=== PATIENT | female | born 1975 | race Caucasian/White ===

== ENCOUNTER 2016-12-04 09:35 | Outpatient (CLI) | payer MEDICAID | END 2016-12-04 23:59 | DX: F41.1 Generalized anxiety disorder (principal); G44.209 Tension-type headache, unspecified, not intractable; E78.5 Hyperlipidemia, unspecified ==

== ENCOUNTER 2017-11-05 16:19 | Outpatient (CLI) | payer MEDICAID ==
--- NOTE | 2017-11-06 00:14 | XRAY Report ---
EXAM: RIGHT KNEE RADIOGRAPHY EXAM DATE: 11/05/2017 04:39 PM. CLINICAL HISTORY: Knee pain, right. COMPARISON: None. TECHNIQUE: 3 views. FINDINGS: Bones: Normal. No fractures or bone lesions. Joints: Normal. No effusion. No subluxations. Soft Tissues: Normal. No soft tissue swelling. IMPRESSION: Normal knee radiography. [facility] Referring Provider Line: [phone] SITE ID: [id number]
--- NOTE | 2017-11-06 00:16 | XRAY Report ---
EXAM: RIGHT HAND RADIOGRAPHY EXAM DATE: 11/05/2017 04:22 PM. CLINICAL HISTORY: Pain in the right hand COMPARISON: None. TECHNIQUE: 3 views. FINDINGS: Bones: Normal. No fractures or bone lesions. Joints: Normal. No subluxations. Soft Tissues: Normal. No soft tissue swelling. IMPRESSION: Normal hand radiography. [facility] Referring Provider Line: [phone] SITE ID: [id number]
== END 2017-11-05 16:20 | disposition home or self-care (01) ==
LOC: DI.N 16:19
PROVIDERS: ATTEND Family Medicine
DX: M79.641 Pain in right hand (principal); M25.561 Pain in right knee

== ENCOUNTER 2018-05-30 08:13 | Outpatient (CLI) | payer MEDICAID ==
[2018-05-30 12:56] LABS: BASOPHILS % (AUTO) 0.5 %; EOSINOPHILS # (AUTO) 0.1 10^3/uL (0.0-0.7); EOSINOPHILS % (AUTO) 1.9 %; HGB - HEMOGLOBIN 13.8 g/dL (12.0-16.0); LYMPHOCYTES # (AUTO) 1.2 10^3/uL (1.5-3.5); LYMPHOCYTES % (AUTO) 30.5 %; MEAN CORPUSCULAR HEMOGLOBIN 30.8 pg (27.0-31.0); MEAN CORPUSCULAR VOLUME 90.6 fL (81.0-99.0); MEAN PLATELET VOLUME 11.2 fL (7.9-10.8); MONOCYTES # (AUTO) 0.2 10^3/uL (0.0-1.0); MONOCYTES % (AUTO) 6.1 %; NEUTROPHILS # (AUTO) 2.4 10^3/uL (1.5-6.6); PLT - PLATELET COUNT 157 10^3/uL (130-450); RED BLOOD COUNT 4.49 10^6/uL (4.20-5.40); RED CELL DISTRIBUTION WIDTH 13.4 % (12.0-15.0)
[2018-05-30 12:59] LABS: ALBUMIN 4.2 g/dL (3.2-5.5); ALBUMIN/GLOBULIN RATIO 1.6 (1.0-2.2); BILIRUBIN,TOTAL 1.6 mg/dL (0.2-1.0); CALCIUM 8.8 mg/dL (8.5-10.3); CREATININE 0.6 mg/dL (0.4-1.0); TOTAL PROTEIN 6.9 g/dL (6.7-8.2)
== END 2018-05-30 08:14 | disposition home or self-care (01) ==
LOC: LAB.N 08:13
PROVIDERS: ATTEND Family Medicine
DX: R53.83 Other fatigue (principal); R59.0 Localized enlarged lymph nodes
CPT/HCPCS: 36415; 80050; 85651

== ENCOUNTER 2018-06-15 09:14 | Outpatient (CLI) | payer MEDICAID ==
--- NOTE | 2018-06-15 14:50 | Mammography Report ---
Reason: AXILLARY LYMPHADENOPATHY Procedure Date: 06/15/2018 Accession Number: [id number] / [id number] Procedure: JOHN - Diagnostic Dig Bilat CPT Code: FULL RESULT: EXAM: Diagnostic Dig Bilat DATE: 06/15/2018 11:06 AM CLINICAL HISTORY: Bilateral breast pain, cyclical. 42-year-old female. TECHNIQUE: Bilateral CC and MLO views were obtained. COMPARISON: None FINDINGS: The breasts demonstrate extremely dense parenchyma bilaterally, limiting the sensitivity of mammography. No suspicious calcifications, masses or architectural distortion are identified. IMPRESSION: Negative examination RECOMMENDATION: Recommend routine annual Screening mammography unless otherwise clinically indicated. BIRADS CATEGORY 1: Negative STANDARD QUALIFYING STATEMENTS: 1. This examination was not reviewed with the aid of Computer-Aided Detection (CAD). 2. A negative or benign imaging report should not delay biopsy if clinically suspicious findings are present. Consider surgical consultation if warrented. More than 5% of cancers are not identified by imaging. 3. Dense breasts may obscure an underlying neoplasm. 4. This examination was reviewed with the aid of 3D imaging (tomography).
== END 2018-06-15 09:15 | disposition home or self-care (01) ==
LOC: DI 09:14
PROVIDERS: ATTEND Family Medicine
DX: R59.0 Localized enlarged lymph nodes (principal)
CPT/HCPCS: 77066

== ENCOUNTER 2018-10-12 15:29 | Emergency (ER) | payer MEDICAID ==
[2018-10-12] MEDS ORDERED: AMOXICILLIN 250 MG CAPSULE PO STA (15:48)
[2018-10-12] MEDS ORDERED: HYDROcod/ACETAM 5/325 MG TABLET PO STA (15:48)
--- NOTE | 2018-10-12 15:50 | ED Physician Documentation ---
PD HPI HEADACHE - Stated complaint Stated Complaint: HEADACH, CHEST PRESSURE, EAR ACHE - Chief complaint Chief Complaint: Neuro - History obtained from History obtained from: Patient, Family - History of Present Illness Timing - onset: Other (She has been sick for about a week with cough, cold, runny nose, sinus congestion. She saw her physician yesterday and was diagnosed with a viral illness. Last night she had a gradual onset but severe global headache. Not associated with fever or neck stiffness. She does not have a history of migraines or other chronic headache conditions. There is no po ssibility of .) Review of Systems Constitutional: reports: Fatigue. denies: Fever, Chills Ears: reports: Ear pain Nose: reports: Rhinorrhea / runny nose, Congestion, Sinus pressure / pain Throat: reports: Sore throat Respiratory: reports: Cough. 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 - Present Medications Home Medications: Ambulatory Orders Medication Instructions Recorded Confirmed Amoxicillin 500 mg PO TID #30 capsule 10/12/18 Hydrocodone/Acetaminophen 1 - 2 each PO Q6H PRN #14 tablet 10/12/18 [Hydrocodon-Acetaminophen 5-325] - Allergies Allergies/Adverse Reactions: Allergies Allergy/AdvReac Type Severity Reaction Status Date / Time No Known Drug Allergies Allergy Verified 10/12/18 15:35 - Social History Does the pt smoke?: No Smoking Status: Never smoker Does the pt drink ETOH?: No Does the pt have substance abuse?: No - Immunizations Immunizations are current?: No Immunizations: TDAP >10years/unknown - POLST Patient has POLST: No PD ED PE NORMAL - Vitals Vital signs reviewed: Yes - General General: Alert and oriented X 3, Other (Appears uncomfortable) - HEENT HEENT: PERRL, EOMI, Other (right otitis media) - Neck Neck: Supple, no meningeal sign, No bony TTP - Cardiac Cardiac: RRR, No murmur - Respiratory Respiratory: No respiratory distress, Clear bilaterally - Abdomen Abdomen: Non tender - Back Back: No CVA TTP, No spinal TTP - Derm Derm: Normal color, Warm and dry - Neuro Neuro: Alert and oriented X 3 Eye Opening: Spontaneous Motor: Obeys Commands Verbal: Oriented GCS Score: 15 - Psych Psych: Normal mood, Normal affect Results - Vitals Vitals: Vital Signs - 24 hr 10/12/18 10/12/18 15:32 16:06 Temperature 37.5 C Heart Rate 117 H 99 Respiratory 20 17 Rate Blood Pressure 139/89 H 117/70 O2 Saturation 100 100 Oxygen O2 Source Room air - Rads (name of study) Ct Head Radiology: EMP read contemporaneously (Sinusitis) PD MEDICAL DECISION MAKING - ED course ED course: This is a 43-year-old woman who presents with severe headache in the setting of pre-existing viral illness, sinusitis is confirmed otherwise CT of head is negative. Departure - Departure Disposition: 01 Home, Self Care Clinical Impression: Sinusitis ROM (right otitis media) Qualifiers: Otitis media type: suppurative Chronicity: acute Recurrence: non-recurrent Spontaneous tympanic membrane rupture: without spontaneous rupture Qualified Code(s): H66.001 - Acute suppurative otitis media without spontaneous rupture of ear drum, right ear Condition: Good Record reviewed to determine appropriate education?: Yes Instructions: ED Headache Tension, ED Sinusitis Abx Tx Prescriptions: Amoxicillin 500 mg PO TID #30 capsule Hydrocodone/Acetaminophen [Hydrocodon-Acetaminophen 5-325] 1 - 2 each PO Q6H PRN #14 tablet PRN Reason: pain Comments: Call your doctor to arrange a follow-up appointment, make the next available appointment. In the interim, return anytime if worse or if new symptoms develop.
--- NOTE | 2018-10-12 16:05 | CT Report ---
Reason: headache Procedure Date: 10/12/2018 Accession Number: [id number] / [id number] Procedure: CT - HEAD WO CPT Code: FULL RESULT: EXAM: CT HEAD EXAM DATE: 10/12/2018 03:56 PM. CLINICAL HISTORY: Headache. COMPARISON: None. TECHNIQUE: Multiaxial CT images were obtained from the foramen magnum to the vertex. Reformats: Sagittal and coronal. IV contrast: None. In accordance with CT protocol optimization, one or more of the following dose reduction techniques were utilized for this exam: automated exposure control, adjustment of mA and/or KV based on patient size, or use of iterative reconstructive technique. FINDINGS: Parenchyma: No intraparenchymal hemorrhage. No evidence of mass, midline shift. Davey-white differentiation is distinct. Extraaxial Spaces: Normal for age. No subdural or epidural collections identified. Ventricles: Normal in size and position. Sinuses and Orbits: Small mucous retention cyst in the left maxillary sinus. Mucoperiosteal thickening in the left sphenoid sinus with opacification of the drainage pathway. Orbits are within normal limits. Bones: No evidence of fracture or calvarial defect. Other: None. IMPRESSION: Sinusitis. No acute intracranial abnormality. [facility]
[2018-10-12 16:09] VITALS: BP 117/70
== END 2018-10-12 16:31 | disposition home or self-care (01) ==
LOC: ED 15:29
DX: J32.9 Chronic sinusitis, unspecified (principal); H66.001 Acute suppurative otitis media without spontaneous rupture of ear drum, right ear
CPT/HCPCS: 70450; 99283; A9270

== ENCOUNTER 2018-10-19 12:43 | Emergency (ER) | payer MEDICAID ==
[2018-10-19 12:56] VITALS: BP 107/69
== END 2018-10-19 13:59 | disposition left against medical advice (07) ==
LOC: ED 12:43
DX: Z53.21 Procedure and treatment not carried out due to patient leaving prior to being seen by health care provider (principal)
CPT/HCPCS: 99281

== ENCOUNTER 2018-11-17 10:03 | Outpatient (CLI) | payer MEDICAID | END 2018-11-17 23:59 | disposition home or self-care (01) | LOC: RT.N 10:03 | PROVIDERS: ATTEND Nurse Practitioner Gerontology | DX: R01.1 Cardiac murmur, unspecified (principal); R07.9 Chest pain, unspecified | CPT/HCPCS: 93005 ==

== ENCOUNTER 2018-11-17 11:50 | Emergency (ER) | payer MEDICAID ==
[2018-11-17 12:37] LABS: BASOPHILS % (AUTO) 0.4 %; EOSINOPHILS % (AUTO) 0.9 %; LYMPHOCYTES % (AUTO) 18.6 %; MEAN CORPUSCULAR HEMOGLOBIN 30.2 pg (27.0-31.0); MEAN CORPUSCULAR HGB CONC 33.5 g/dL (32.0-36.0); MEAN CORPUSCULAR VOLUME 90.1 fL (81.0-99.0); MEAN PLATELET VOLUME 10.6 fL (7.9-10.8); MONOCYTES # (AUTO) 0.2 10^3/uL (0.0-1.0); NEUTROPHILS % (AUTO) 76.1 %; PLT - PLATELET COUNT 165 10^3/uL (130-450); RED BLOOD COUNT 4.64 10^6/uL (4.20-5.40); RED CELL DISTRIBUTION WIDTH 13.4 % (12.0-15.0); WHITE BLOOD COUNT 5.3 x10^3/uL (4.8-10.8)
[2018-11-17 12:46] LABS: ALBUMIN 4.3 g/dL (3.2-5.5); ALBUMIN/GLOBULIN RATIO 1.5 (1.0-2.2); BILIRUBIN,TOTAL 1.5 mg/dL (0.2-1.0); CALCIUM 8.8 mg/dL (8.5-10.3); CREATININE 0.7 mg/dL (0.4-1.0); TOTAL PROTEIN 7.1 g/dL (6.7-8.2)
--- NOTE | 2018-11-17 13:02 | XRAY Report ---
Reason: Chest Pain Procedure Date: 11/17/2018 Accession Number: [id number] / [id number] Procedure: XR - Chest 1 View X-Ray CPT Code: 49943 FULL RESULT: EXAM: CHEST RADIOGRAPHY EXAM DATE: 11/17/2018 12:44 PM. CLINICAL HISTORY: Chest Pain. COMPARISON: CHEST 2 VIEW PA/LAT 06/18/2015 9:37 PM. TECHNIQUE: 1 view. FINDINGS: Lungs/Pleura: No focal opacities evident. No pleural effusion. No pneumothorax. Mediastinum: Within exam limitations, the cardiomediastinal contour is normal. Other: Mild convex left lower thoracic scoliosis. IMPRESSION: No consolidation evident. [facility]
[2018-11-17 13:22] VITALS: BP 96/45
[2018-11-17] MEDS ORDERED: SUCRALFATE 1 GM/10 ML UDC PO STA (13:43)
[2018-11-17] MEDS ORDERED: PHENobarb/HYOSCY/ATROPINE/SCOP 5 ML UDC PO STA (13:43)
[2018-11-17] MEDS ORDERED: MAG HYDROX/AL HYDROX/SIMETH 30 ML UDC PO STA (13:43)
[2018-11-17] MEDS ORDERED: FAMOTIDINE 20 MG TABLET PO STA (13:43)
--- NOTE | 2018-11-17 13:43 | ED Physician Documentation ---
PD HPI CHEST PAIN - Stated complaint Stated Complaint: CP/SENT BY - Chief complaint Chief Complaint: Cardiac - History obtained from History obtained from: Patient, Family - History of Present Illness Timing - onset: Yesterday Timing - onset during: Rest Timing - duration: Days (2) Timing - details: Gradual onset Quality: Other (burning) Location: Epigastric Radiation: Jaw Improved by: Nothing Worsened by: Other (lying flat) Associated symptoms: No: Shortness of air, Diaphoresis, Nausea, Vomiting, Feeling faint / dizzy, General Weakness, Palpitations, Cough Similar symptoms before: Has not had sx before Recently seen: Clinic (sent from clinic for eval.) Review of Systems Constitutional: denies: Fever, Chills Respiratory: denies: Cough, Wheezing Skin: denies: Rash Musculoskeletal: denies: Neck pain, Back pain Neurologic: denies: Headache PD PAST MEDICAL HISTORY - Past Medical History Cardiovascular: None Endocrine/Autoimmune: None Psych: None Musculoskeletal: None - Past Surgical History 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 - Present Medications Home Medications: Ambulatory Orders Medication Instructions Recorded Confirmed Amoxicillin 500 mg PO TID #30 capsule 10/12/18 10/19/18 Hydrocodone/Acetaminophen 1 - 2 each PO Q6H PRN #14 tablet 10/12/18 10/19/18 [Hydrocodon-Acetaminophen 5-325] Famotidine [Pepcid] 20 mg PO BID #60 tablet 11/17/18 Sucralfate [Carafate] 1 gm PO ACHS #60 tablet 11/17/18 - Allergies Allergies/Adverse Reactions: Allergies Allergy/AdvReac Type Severity Reaction Status Date / Time No Known Drug Allergies Allergy Verified 11/17/18 12:03 - Social History Does the pt smoke?: No Smoking Status: Never smoker Does the pt drink ETOH?: No Does the pt have substance abuse?: No - Immunizations Immunizations are current?: No Immunizations: TDAP >10years/unknown - POLST Patient has POLST: No PD ED PE NORMAL - Vitals Vital signs reviewed: Yes - General General: Alert and oriented X 3, No acute distress - HEENT HEENT: Moist mucous membranes - Neck Neck: Supple, no meningeal sign - Cardiac Cardiac: RRR, No murmur, Strong equal pulses - Respiratory Respiratory: No respiratory distress, Clear bilaterally - Abdomen Abdomen: Soft, Non distended, Other (Mild tender palpation epigastric. Negative Acuna sign) - Back Back: No CVA TTP, No spinal TTP - Derm Derm: Warm and dry - Extremities Extremities: No edema, No calf tenderness / cord - Neuro Neuro: Alert and oriented X 3 - Psych Psych: Normal mood, Normal affect Results - Vitals Vitals: Vital Signs - 24 hr 11/17/18 11/17/18 12:00 13:21 Temperature 36.3 C L Heart Rate 87 85 Respiratory 16 16 Rate Blood Pressure 111/68 96/45 L O2 Saturation 100 96 Oxygen O2 Source Room air - EKG (time done) 1203 Rate: Rate (enter#) (87) Rhythm: NSR [place]: Normal Intervals: Normal LA QRS: Normal Ischemia: Normal ST segments - Labs Labs: Laboratory Tests 11/17/18 11/17/18 11/17/18 11:29 11:29 11:29 WBC 5.3 RBC 4.64 Hgb 14.0 Hct 41.8 MCV 90.1 MCH 30.2 MCHC 33.5 RDW 13.4 Plt Count 165 MPV 10.6 Neut # (Auto) 4.0 Lymph # (Auto) 1.0 L [place] # (Auto) 0.2 Eos # (Auto) 0.0 Baso # (Auto) 0.0 Absolute Nucleated RBC 0.00 Nucleated RBC % 0.0 Sodium 136 Potassium 4.1 Chloride 99 L Carbon Dioxide 29 Anion Gap 8.0 BUN 11 Creatinine 0.7 Estimated GFR (MDRD) 92 Glucose 113 H Calcium 8.8 Total Bilirubin 1.5 H AST 17 ALT 16 Alkaline Phosphatase 59 Troponin I < 0.04 Total Protein 7.1 Albumin 4.3 Globulin 2.8 Albumin/Globulin Ratio 1.5 Lipase 27 - Rads (name of study) cxr Radiology: Prelim report reviewed, EMP read contemporaneously, See rad report (normal) PD MEDICAL DECISION MAKING - ED course Complexity details: reviewed results, re-evaluated patient, considered differential (No ST elevation IA, no aortic dissection, no PE, no tension pneumothorax, no aortic aneurysm), d/w patient, d/w family ED course: 43-year-old female presents to the emergency department sounds like gastroesophageal reflux disease. Feels better after GI cocktail. She is well- appearing, nontoxic. No acute findings on EKG. Negative troponin after greater than 24 hours of symptoms. No evidence of pulmonary embolus. No recent travel. No immobilization. Does not smoke. No control. No history of hypercoagulable state. Patient counseled regarding signs and symptoms for which I believe and urgent re-evaluation would be necessary. Patient with good understanding of and agreement to plan and is comfortable going home at this time This document was made in part using voice recognition software. While efforts are made to proofread this document, sound alike and grammatical errors may occur. Departure - Departure Disposition: Home, Self Care Clinical Impression: Chest pain Qualifiers: Chest pain type: unspecified Qualified Code(s): R07.9 - Chest pain, unspecified GERD (gastroesophageal reflux disease) Qualifiers: Esophagitis presence: with esophagitis Qualified Code(s): K21.0 - Gastro- esophageal reflux disease with esophagitis Condition: Good Instructions: ED Chest Pain Atypical Unkn Cause, ED GERD Follow-Up: Fallon Short ARNP [Primary Care Provider] - Within 1 week Prescriptions: Famotidine [Pepcid] 20 mg PO BID #60 tablet Sucralfate [Carafate] 1 gm PO ACHS #60 tablet Comments: Use the medications as prescribed. Return if you worsen. You should follow-up with your doctor Next week to have a cardiac stress test scheduled. Discharge Date/Time: 11/17/18 14:00
== END 2018-11-17 14:00 | disposition home or self-care (01) ==
LOC: ED 11:50
DX: R07.9 Chest pain, unspecified (principal); K21.0 Gastro-esophageal reflux disease with esophagitis; R01.1 Cardiac murmur, unspecified
CPT/HCPCS: 36415; 71045; 80053; 83690; 84484; 85025; 93005; 99283; 99284; A9270

== ENCOUNTER 2018-12-02 20:53 | Emergency (ER) | payer OTHER, MEDICAID ==
[2018-12-02 21:02] VITALS: BP 114/74
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
[2018-12-02] MEDS ORDERED: CHERRY SYRUP 10 ML UDC PO ONE (21:34)
[2018-12-02] MEDS ORDERED: DEXAMETHASONE 10 MG/ML VIAL PO STA (21:34)
[2018-12-02] MEDS ORDERED: AZITHROMYCIN 250 MG TABLET PO STA (21:35)
[2018-12-02] MEDS ORDERED: LORazepam 1 MG TABLET PO STA (21:36)
== END 2018-12-02 21:47 | disposition home or self-care (01) ==
LOC: ED 20:53
DX: F41.9 Anxiety disorder, unspecified (principal); H66.004 Acute suppurative otitis media without spontaneous rupture of ear drum, recurrent, right ear
CPT/HCPCS: 99283; A9270; J8499

== ENCOUNTER 2019-02-08 07:22 | Outpatient (CLI) | payer MEDICAID ==
--- NOTE | 2019-02-08 14:11 | CT Report ---
Reason: FACIAL PAIN, HEADACHE Procedure Date: 02/08/2019 Accession Number: [id number] / [id number] Procedure: CT - Sinuses CPT Code: FULL RESULT: EXAM: CT SINUS EXAM DATE: 02/08/2019 07:38 AM. HISTORY: Facial pain, headache. COMPARISONS: HEAD W/O 10/12/2018 3:56 PM. TECHNIQUE: Routine multi-axial CT imaging performed through the sinuses. Iodinated IV contrast: None. Reconstructions: Multiplanar reformats. In accordance with CT protocol optimization, one or more of the following dose reduction techniques were utilized for this exam: automated exposure control, adjustment of mA and/or KV based on patient size, or use of iterative reconstructive technique. FINDINGS: RIGHT Frontal: Normal. Ethmoid: Mild demineralization and minimal mucoperiosteal thickening. Maxillary: Minimal mucoperiosteal thickening. Sphenoid: Normal. Drainage Pathways: The frontal recess, ostiomeatal complex and sphenoethmoidal recess are patent and normal. LEFT Frontal: Normal. Ethmoid: Mild demineralization and minimal mucoperiosteal thickening. Maxillary: Mucoid retention cyst is noted, similar to September 2018. Sphenoid: Normal. Drainage Pathways: The frontal recess, ostiomeatal complex and sphenoethmoidal recess are patent and normal. Nasal Cavity: Subjectively symmetrically thick mucosa with mildly demineralized nasal structures and septal deviation towards the right. Osseous Structures: Unremarkable as seen outside of the sinonasal air passages. Orbits: Unremarkable. Other: None. IMPRESSION: Deviated septum. Chronic changes of sinusitis without presently obstructed drainage pathway. [facility]
== END 2019-02-08 07:23 | disposition home or self-care (01) ==
LOC: DI 07:22
PROVIDERS: ATTEND Otolaryngology
DX: J34.2 Deviated nasal septum (principal); J32.9 Chronic sinusitis, unspecified; R51 Headache
CPT/HCPCS: 70486

== ENCOUNTER 2019-07-03 13:52 | Outpatient (CLI) | payer MEDICAID ==
--- NOTE | 2019-07-03 15:28 | XRAY Report ---
Reason: NUMBNESS OF SKIN Procedure Date: 07/03/2019 Accession Number: [id number] / [id number] Procedure: XRN - Chest 2 View X-Ray CPT Code: 38381 Final Report FULL RESULT: EXAM: CHEST RADIOGRAPHY EXAM DATE: 07/03/2019 02:06 PM. CLINICAL HISTORY: Chest pain. Anxiety. Numbness of skin. COMPARISON: CHEST 1 VIEW 11/17/2018 12:39 PM. TECHNIQUE: 2 views. FINDINGS: Lungs/Pleura: No focal opacities evident. No pleural effusion. No pneumothorax. Normal volumes. Mediastinum: Heart and mediastinal contours are unremarkable. Other: None. IMPRESSION: Normal 2-view chest radiography. [facility]
== END 2019-07-03 13:53 | disposition home or self-care (01) ==
LOC: DI.N 13:52
PROVIDERS: ATTEND Physician Assistant Medical
DX: R07.9 Chest pain, unspecified (principal); F41.9 Anxiety disorder, unspecified; R20.2 Paresthesia of skin
CPT/HCPCS: 71046

== ENCOUNTER 2019-07-03 14:21 | Outpatient (CLI) | payer SELFPAY ==
[2019-07-03 18:41] LABS: BASOPHILS % (AUTO) 0.5 %; EOSINOPHILS # (AUTO) 0.1 10^3/uL (0.0-0.7); EOSINOPHILS % (AUTO) 1.2 %; HGB - HEMOGLOBIN 13.4 g/dL (12.0-16.0); LYMPHOCYTES # (AUTO) 0.9 10^3/uL (1.5-3.5); LYMPHOCYTES % (AUTO) 21.7 %; MEAN CORPUSCULAR HEMOGLOBIN 29.2 pg (27.0-31.0); MEAN CORPUSCULAR HGB CONC 31.6 g/dL (32.0-36.0); MEAN CORPUSCULAR VOLUME 92.4 fL (81.0-99.0); MEAN PLATELET VOLUME 12.7 fL (7.9-10.8); MONOCYTES # (AUTO) 0.2 10^3/uL (0.0-1.0); MONOCYTES % (AUTO) 5.6 %; NEUTROPHILS % (AUTO) 70.8 %; PLT - PLATELET COUNT 211 10^3/uL (130-450); RED BLOOD COUNT 4.59 10^6/uL (4.20-5.40); RED CELL DISTRIBUTION WIDTH 12.5 % (12.0-15.0); WHITE BLOOD COUNT 4.3 x10^3/uL (4.8-10.8)
[2019-07-03 18:59] LABS: ALBUMIN 4.4 g/dL (3.2-5.5); ALBUMIN/GLOBULIN RATIO 1.6 (1.0-2.2); CALCIUM 9.3 mg/dL (8.5-10.3); CREATININE 0.4 mg/dL (0.4-1.0); TOTAL PROTEIN 7.1 g/dL (6.7-8.2)
== END 2019-07-03 23:59 | disposition home or self-care (01) ==
LOC: LAB.N 14:21
PROVIDERS: ATTEND Physician Assistant Medical
DX: R10.11 Right upper quadrant pain (principal); F41.9 Anxiety disorder, unspecified; R07.9 Chest pain, unspecified; R20.0 Anesthesia of skin
CPT/HCPCS: 36415; 80050; 83690

== ENCOUNTER 2019-09-18 12:35 | Outpatient (CLI) | payer BC ==
--- NOTE | 2019-09-18 14:43 | Mammography Report ---
Reason: RIGHT BREAST PAIN Procedure Date: 09/18/2019 Accession Number: [id number] / [id number] Procedure: JOHN - Diagnostic Dig Bilat CPT Code: Final Report FULL RESULT: EXAM: Diagnostic Dig Bilat, Breast Unilateral Right Ultrasound Limited DATE: 09/18/2019 1:30 PM CLINICAL HISTORY: Palpable right upper outer quadrant lump COMPARISON: 06/15/2018 MAMMOGRAM: TECHNIQUE: (B) - Bilateral CC and MLO views were obtained. PARENCHYMAL PATTERN: (VD) - The breasts demonstrate extremely dense parenchyma bilaterally, limiting the sensitivity of mammography. FINDINGS: No significant interval change. There are no suspicious masses, calcifications, or areas of distortion. No mammographic abnormality is seen at the site of clinical interest right upper outer quadrant. RIGHT BREAST ULTRASOUND: TECHNIQUE: Real time scanning by the thermal cutter hand with saved static images reviewed. FINDINGS: Scanning is performed at the site of the palpable abnormality right breast 10:00 position 8 cm from the nipple. No cystic or solid mass or abnormal fluid collection is seen. The palpable finding represents a ridge of dense parenchyma. IMPRESSION: Negative examination. BI-RADS category 1. RECOMMENDATION: (ANNUAL) - Recommend routine annual screening mammography. BI-RADS CATEGORY: (1) - Negative. STANDARD QUALIFYING STATEMENTS: 1. This examination was not reviewed with the aid of Computer-Aided Detection (CAD). 2. A negative or benign imaging report should not preclude biopsy if clinically suspicious findings are present. 3. Dense breasts may obscure an underlying neoplasm. 4. This examination was reviewed with the aid of 3D breast imaging (tomosynthesis).
== END 2019-09-18 12:36 | disposition home or self-care (01) ==
LOC: DI 12:35
PROVIDERS: ATTEND Nurse Practitioner Gerontology
DX: N64.4 Mastodynia (principal)
CPT/HCPCS: 76642; 77066

== ENCOUNTER 2019-10-23 08:00 | Outpatient (CLI) | payer BC | END 2019-10-23 23:59 | disposition home or self-care (01) | LOC: LAB.R 08:00 | PROVIDERS: ATTEND Nurse Practitioner Gerontology | DX: R19.7 Diarrhea, unspecified (principal) | CPT/HCPCS: 81599; 87329 ==

== ENCOUNTER 2019-10-24 07:00 | Outpatient (CLI) | payer BC ==
[2019-10-24 11:55] LABS: BASOPHILS % (AUTO) 0.6 %; EOSINOPHILS # (AUTO) 0.1 10^3/uL (0.0-0.7); HGB - HEMOGLOBIN 13.6 g/dL (12.0-16.0); LYMPHOCYTES # (AUTO) 1.2 10^3/uL (1.5-3.5); LYMPHOCYTES % (AUTO) 33.2 %; MEAN CORPUSCULAR HEMOGLOBIN 29.2 pg (27.0-31.0); MEAN CORPUSCULAR HGB CONC 31.9 g/dL (32.0-36.0); MEAN CORPUSCULAR VOLUME 91.4 fL (81.0-99.0); MEAN PLATELET VOLUME 13.1 fL (7.9-10.8); MONOCYTES # (AUTO) 0.3 10^3/uL (0.0-1.0); MONOCYTES % (AUTO) 8.2 %; NEUTROPHILS % (AUTO) 55.7 %; PLT - PLATELET COUNT 175 10^3/uL (130-450); RED BLOOD COUNT 4.66 10^6/uL (4.20-5.40); RED CELL DISTRIBUTION WIDTH 12.6 % (12.0-15.0); WHITE BLOOD COUNT 3.6 x10^3/uL (4.8-10.8)
[2019-10-24 12:14] LABS: ALBUMIN 4.2 g/dL (3.2-5.5); ALBUMIN/GLOBULIN RATIO 1.6 (1.0-2.2); ALKALINE PHOSPHATASE 43 IU/L (42-121); ALT ALANINE AMINOTRANSFERASE 13 IU/L (10-60); AST ASPARTATE AMINOTRANSFERASE 15 IU/L (10-42); BILIRUBIN,TOTAL 1.3 mg/dL (0.2-1.0); BUN - BLOOD UREA NITROGEN 10 mg/dL (6-20); CALCIUM 8.8 mg/dL (8.5-10.3); CARBON DIOXIDE - CO2 27 mmol/L (21-32); CHLORIDE 103 mmol/L (101-111); CHOL/HDL RATIO 2.9 (<4.4); CHOLESTEROL 193 mg/dL; CREATININE 0.5 mg/dL (0.4-1.0); GFR - MDRD 135 (>89); GLUCOSE 91 mg/dL (70-100); HDL CHOLESTEROL 67 mg/dL; LDL CHOLESTEROL,CALCULATED 101 mg/dL; LDL/HDL RATIO 1.5 (<4.4); SODIUM 136 mmol/L (135-145); TOTAL PROTEIN 6.9 g/dL (6.7-8.2); VLDL CHOLESTEROL 25 mg/dL
== END 2019-10-24 23:59 | disposition home or self-care (01) ==
LOC: LAB.N 07:00
PROVIDERS: ATTEND Nurse Practitioner Gerontology
DX: Z13.9 Encounter for screening, unspecified (principal); E78.5 Hyperlipidemia, unspecified
CPT/HCPCS: 36415; 80053; 80061; 83721; 84443; 85025